=== PATIENT | female | born 1990 | race Caucasian/White ===

== ENCOUNTER 2021-10-04 19:41 | Emergency (ER) | payer OTHER ==
[~2021-10-04] VITALS: Ht 170.2 cm; Wt 59.9 kg
[2021-10-04] MEDS ORDERED: BIRTH CONTROL MED (19:53)
[2021-10-04] MEDS ORDERED: AUGMENTIN 875-1 EACH PO (20:03)
[2021-10-04 20:24] VITALS: BP 130/70
== END 2021-10-04 20:25 | disposition home or self-care (01) ==
LOC: M.ERS 19:41
DX: S61.251A Open bite of left index finger without damage to nail, initial encounter (principal); W54.0XXA Bitten by dog, initial encounter; Y93.89 Activity, other specified; Y92.89 Other specified places as the place of occurrence of the external cause; Y99.8 Other external cause status